=== PATIENT | male | born 1995 | race Asian ===

== ENCOUNTER 2019-03-15 15:34 | Emergency (ER) | payer SELFPAY ==
[2019-03-15] MEDS ORDERED: NS 0.9% 1000 ML** 1,000 ML IV ONE (15:44)
[2019-03-15] MEDS ORDERED: Ondansetron ODT TAB* 4 MG SL ONE (15:58)
--- NOTE | 2019-03-15 16:25 | ED ---
Substance Abuse/Use - HPI Summary HPI Summary: Patient is a 24-year-old male presenting to the ED from [facility]. Patient has obvious intoxication. Arrives by EMS. EMS states he was found on the held to be intoxicated and sent here. He is alert and oriented on arrival. He is able to state name, date, place and time. He is very stuporous and states "I'm all messed up, and I drank too much." Patient denies any drug use. He states he has otherwise healthy and denying any medications. Denies any allergies. He denies any trauma, hitting his head or LOC. He states he recalls the events of the morning, and just states he drank too much on this date. - History Of Current Complaint Chief Complaint: EDSubstanceAbuse Stated Complaint: ETOH PER EMS Time Seen by Provider: 03/15/19 15:43 Hx Obtained From: Patient Onset/Duration of Drug/ETOH Abuse: Hours Ingestion History: Type/Name Of Drug Overdose Characteristics: Oral Timing Of Abuse: Daily, Binge Use - Alcohol use without drug use Severity Initially: Moderate Severity Currently: Moderate Character: Stuporous Aggravating Factor(s): Nothing Alleviating Factor(s): Nothing Associated Signs And Symptoms: Nausea, Intentional Ingestion Related Hx: Drug/Alcohol Last Used @ - Just prior to arrival - Risk Factor(s) Completed Suicide Risk Factors: Male - Allergies/Home Medications Allergies/Adverse Reactions: Allergies Allergy/AdvReac Type Severity Reaction Status Date / Time No Known Allergies Allergy Verified 03/15/19 17:12 Home Medications: Home Medications Unobtainable 03/15/19 [History Confirmed 03/15/19] PMH/Surg Hx/FS Hx/Imm Hx Previously Healthy: Yes - Immunization History Hx Pertussis Vaccination: No Immunizations Up to Date: Yes Infectious Disease History: No Infectious Disease History: Denies: Traveled Outside the [place] in Last 30 Days - Social History Occupation: Unemployed, Student Lives: Dormitory/Roommates Alcohol Use: Weekly - binge use Hx Substance Use: No Substance Use Type: Reports: None - patient denies Hx Tobacco Use: No Smoking Status (MU): Never Smoked Tobacco Review of Systems Negative: Fever, Chills, Fatigue, Skin Diaphoresis Negative: Palpitations, Chest Pain Negative: Shortness Of Breath, Cough Positive: Nausea. Negative: Vomiting, Diarrhea Genitourinary: Negative Positive: no symptoms reported, see HPI Positive: Slurred Speech Psychological: Normal All Other Systems Reviewed And Are Negative: Yes Physical Exam Triage Information Reviewed: Yes Vital Signs On Initial Exam: Initial Vitals Temp Pulse Resp BP Pulse Ox 96.1 F 69 16 106/63 100 03/15/19 15:37 03/15/19 15:37 03/15/19 15:37 03/15/19 15:37 03/15/19 15:37 Vital Signs Reviewed: Yes Appearance: Positive: Well-Nourished, Ill-Appearing - Patient appears intoxicated Skin: Positive: Warm, Diaphoretic Head/Face: Positive: Normal Head/Face Inspection Eyes: Positive: EOMI, YASMIN, Conjunctiva Clear Neck: Positive: Supple, No Lymphadenopathy Respiratory/Lung Sounds: Positive: Clear to Auscultation, Breath Sounds Present Cardiovascular: Positive: RRR, Pulses are Symmetrical in both Upper and Lower Extremities Musculoskeletal: Positive: Normal, Strength/ROM Intact Neurological: Positive: Slurred Speech. Negative: Expressive Aphasia Psychiatric: Positive: Normal, Other - Patient is cooperative for exam AVPU Assessment: Verbal (Reponds To) - Nate Coma Scale Best Eye Response: 3 - To Speech Best Motor Response: 5 - Purposeful Movement Best Verbal Response: 5 - Oriented Coma Scale Total: 13 Diagnostics - Vital Signs Vital Signs Temp Pulse Resp BP Pulse Ox 03/15/19 15:37 96.1 F 69 16 106/63 100 - Laboratory Lab Statement: Any lab studies that have been ordered have been reviewed, and results considered in the medical decision making process. Course/Dx - Course Course Of Treatment: During the course of treatment, the patient is given 4 mg sublingual Zofran for nausea. He is endorsing nausea, without vomiting. He denies any drug use. Alcohol level obtained which is 204. He is kept in the ED nearly 3 hours. He is observed. He ambulated well, eating and drinking okay. Patient alert and oriented, able to answer questions appropriately. He' ll be discharged home at this time with alcohol intoxication. Safe ride back to [place]. - Diagnoses Provider Diagnoses: Alcohol intoxication Discharge - Sign-Out/Discharge Documenting (check all that apply): Patient Departure Patient Received Moderate/Deep Sedation with Procedure: No - Discharge Plan Condition: Stable Disposition: HOME Patient Education Materials: Alcohol Intoxication (ED) Referrals: No Primary Care Phys,NOPCP [Primary Care Provider] - Additional Instructions: Do not drink alcohol Drink plenty of fluids Rest today - Billing Disposition and Condition Condition: STABLE Disposition: Home
[2019-03-15 19:00] VITALS: BP 116/82
== END 2019-03-15 18:30 | disposition home or self-care (01) ==
LOC: ED 15:34 → EDBD 15:34 → ED 18:30
DX: F10.129 Alcohol abuse with intoxication, unspecified (principal); R47.81 Slurred speech; R11.0 Nausea
CPT/HCPCS: 36415; 80320; 99283; G0480

== ENCOUNTER 2019-03-28 18:34 | Emergency (ER) | payer SELFPAY ==
--- NOTE | 2019-03-28 18:53 | ED ---
Lower Extremity - HPI Summary HPI Summary: This patient is a 24 year old male presenting to [facility] with a chief complaint of right foot injury. He was swimming yesterday jumped down about 6 ft & landed on cement slab, injuring his right foot. He was seen and an xray was completed at [facility] with a splint & crutches provided. Today he lost balance & fell, landed on right knee & reinjured his right foot. He states he only has pain in the foot, the rest of his extremity feels fine. He rates his pain 8/10 in severity. - History of Current Complaint Stated Complaint: RT FOOT INJURY PER EMS Time Seen by Provider: 03/28/19 18:39 Hx Obtained From: Patient Onset of Pain: Minutes Onset/Duration: Minutes Severity Initially: Mild Severity Currently: Mild Pain Intensity: 8 Pain Scale Used: 0-10 Numeric - Allergies/Home Medications Allergies/Adverse Reactions: Allergies Allergy/AdvReac Type Severity Reaction Status Date / Time No Known Allergies Allergy Verified 03/28/19 18:51 Home Medications: Home Medications NK [No Home Medications Reported] 03/28/19 [History Confirmed 03/28/19] PMH/Surg Hx/FS Hx/Imm Hx Endocrine/Hematology History: Denies: Hx Diabetes Cardiovascular History: Denies: Hx Coronary Artery Disease - Family History Known Family History: Negative: Seizure Disorder - Social History Alcohol Use: Weekly - binge use Hx Substance Use: No Substance Use Type: Reports: None - patient denies Substance Use Comment - Amount & Last Used: unknown Hx Tobacco Use: No Smoking Status (MU): Never Smoked Tobacco Review of Systems Negative: Fever Positive: Other - RLE pain All Other Systems Reviewed And Are Negative: Yes Physical Exam - Summary Physical Exam Summary: Appearance: The patient is well-nourished in no acute distress and in no acute pain. Skin: The skin is warm and dry and skin color reflects adequate perfusion. HEENT: The head is normocephalic and atraumatic. The pupils are equal and reactive. The conjunctivae are clear and without drainage. Nares are patent and without drainage. Mouth reveals moist mucous membranes and the throat is without erythema and exudate. The external ears are intact. The ear canals are patent and without drainage. The tympanic membranes are intact. Neck: The neck is supple with full range of motion and non-tender. There are no carotid bruits. There is no neck vein distension. Respiratory: Chest is non-tender. Lungs are clear to auscultation and breath sounds are symmetrical and equal. Cardiovascular: Heart is regular rate and rhythm. There is no murmur or rub auscultated. There is no peripheral edema and pulses are symmetrical and equal. Abdomen: The abdomen is soft and non-tender. There are normal bowel sounds heard in all four quadrants and there is no organomegaly palpated. Musculoskeletal: There is no back tenderness noted. Extremities are non-tender with full range of motion. There is good capillary refill. There is no peripheral edema or calf tenderness elicited. Ecchymosis on the dorsal base of his great toe. Neurological: Patient is alert and oriented to person, place and time. The patient has symmetrical motor strength in all four extremities. Cranial nerves are grossly intact. Deep tendon reflexes are symmetrical and equal in all four extremities. Psychiatric: The patient has an appropriate affect and does not exhibit any anxiety or depression. Triage Information Reviewed: Yes Vital Signs On Initial Exam: Temp Pulse Resp BP Pulse Ox 97.9 F 67 16 128/62 96 03/28/19 18:36 03/28/19 18:36 03/28/19 18:36 03/28/19 18:36 03/28/19 18:36 Vital Signs Reviewed: Yes Diagnostics - Laboratory Lab Statement: Any lab studies that have been ordered have been reviewed, and results considered in the medical decision making process. - Radiology Foot XR Radiology Interpretation Completed By: ED Physician Summary of Radiographic Findings: No acute process. Pending official radiologist report. Lower Extremity Course/Dx - Course Course Of Treatment: Another x-ray was obtained and again negative. We're putting him back in his boot and crutches and recommending follow-up with orthopedics. - Diagnoses Provider Diagnoses: Right foot sprain Discharge - Sign-Out/Discharge Documenting (check all that apply): Patient Departure - Discharge Patient Received Moderate/Deep Sedation with Procedure: No - Discharge Plan Condition: Stable Disposition: HOME Patient Education Materials: Foot Sprain (ED) Referrals: No Primary Care Phys,NOPCP [Primary Care Provider] - Additional Instructions: Return to ED with any new or worsening symptoms. - Billing Disposition and Condition Condition: STABLE Disposition: Home - Attestation Statements Document Initiated by Scribe: Yes Documenting Scribe: Freddie Delacruz Provider For Whom Scribe is Documenting (Include Credential): Rui Price MD Scribe Attestation: I, Freddie Delacruz, scribed for Rui Price MD on 03/28/19 at 2123. Scribe Documentation Reviewed: Yes Provider Attestation: The documentation as recorded by the scribe, Freddie Delacruz accurately reflects the service I personally performed and the decisions made by me, Rui Price MD Status of Scribe Document: Viewed
[2019-03-28 19:41] VITALS: BP 121/65
== END 2019-03-28 19:40 | disposition home or self-care (01) ==
LOC: ED 18:34
DX: S93.601A Unspecified sprain of right foot, initial encounter (principal); W22.09XA Striking against other stationary object, initial encounter; Y93.39 Activity, other involving climbing, rappelling and jumping off
CPT/HCPCS: 99215; 99281

== ENCOUNTER 2019-03-30 10:28 | Day surgery (SDC) | payer OTHER ==
[~2019-03-30 10:28] MED LIST: Buffered Lidocaine 1% SYRIN* 1 ML/SYRINGE INTRADERM ONE; Lactated Ringers 1000 ML Bag* 1,000 ML IV SCH; Sodium Citrate/Citric Acid* 15 ML UDC PO ONE
[2019-03-30] MEDS ORDERED: Sodium Citrate/Citric Acid* 15 ML UDC ONE (10:43)
[2019-03-30] MEDS ORDERED: ceFAZolin 2 GM PREMIX in ORs 2 GM/50 ML BAG IVPB ONE (10:44)
[2019-03-30] MEDS ORDERED: Buffered Lidocaine 1% SYRIN* 1 ML/SYRINGE INTRADERM ONE (10:44)
[2019-03-30] MEDS ORDERED: Bupivacaine 0.5%* 50 ML VIAL ONE (11:30)
[2019-03-30] MEDS ORDERED: Bupivacaine 0.25% SDV PF* 10 ML VIAL INJ ONE (11:31)
[2019-03-30] MEDS ORDERED: Lidocaine 2% PF * 5 ML VIAL ONE (11:47)
[2019-03-30] MEDS ORDERED: Propofol* 10 MG/ML 20 ML BTL ONE (11:47)
[2019-03-30] MEDS ORDERED: fentaNYL* 50 MCG/ML 2 ML VIAL (100 MCG VIAL) ONE ×2 (11:47→13:49)
[2019-03-30] MEDS ORDERED: Ondansetron INJ* 2 MG/ML VIAL ONE (12:05)
[2019-03-30] MEDS ORDERED: Ketorolac INJ* 30 MG/ML 1 ML VIAL ONE (12:05)
[2019-03-30] MEDS ORDERED: Dexamethasone IV* 4 MG/ML 1 ML (4 MG) ONE (12:05)
[2019-03-30] MEDS ORDERED: Naloxone* 0.4 MG/ML 1 ML VIAL IV PRN (12:10)
[2019-03-30] MEDS ORDERED: DiMENhydriNATE IV* 50 MG/ML VIAL IV PUSH PRN (12:10)
[2019-03-30] MEDS ORDERED: Acetaminophen IV 1GM/100ML * 1,000 MG/100 ML VIAL IVPB ONE (13:15)
[2019-03-30] MEDS: fentaNYL* 50 MCG/ML 2 ML VIAL (100 MCG VIAL) IV PRN ×2 (13:49→13:54)
[2019-03-30] MEDS ORDERED: oxyCODONE TAB* 5 MG TAB ONE ×2 (14:13→15:16)
--- NOTE | 2019-03-30 14:18 | OP ---
Operative Report - Blank - Operative Report Date of Operation: 03/30/19 Note: PATIENT: Rustam Olivares DATE OF : 1995 DATE OF SURGERY: 03/30/2019 SURGEON: Alex Mcrae MD BASIC SCIENCES DEAN: FARRAH Gore, whos assistance was necessary for positioning, retraction, help with instrumentation, and closure. ANESTHESIOLOGIST: Dr. Faith PREOPERATIVE DIAGNOSIS: Left foot Lisfranc injury with Lisfranc and 2nd TMT joint dislocations, and 2nd metatarsal fracture, 3rd metatarsal fracture and lateral cuneiform fracture. POSTOPERATIVE DIAGNOSIS: Left foot Lisfranc injury with Lisfranc, 1st and 2nd TMT joint dislocations, and 2nd metatarsal fracture, 3rd metatarsal fracture and lateral cuneiform fracture. OPERATION: 1. Left foot open reduction and internal fixation of the 1st TMT joint. 2. Left foot open reduction and internal fixation of the Lisfranc and 2nd TMT joints. 3. Left foot open reduction and internal fixation of the 2nd metatarsal base fracture. 4. Left foot closed treatment of 3rd metatarsal and lateral cuneiform fractures. ANESTHESIA: General IMPLANTS: Arthrex CFS plate and screws, 4.0mm cannulated screw TOURNIQUET TIME: Less than 1 hour with a well-padded thigh tourniquet at 250 mmHg SPECIMENS: none ESTIMATED BLOOD LOSS: minimal COMPLICATIONS: none STATUS: Stable from the operating room to the recovery room and then home. INDICATIONS FOR PROCEDURE: Rustam sustained a right midfoot Lisfranc injury. Both operative and non operative treatment alternatives were reviewed. Further, the nature and risks of surgery were reviewed in careful detail, in the office as well as the pre- operative holding area. Our discussions regarding the risks of surgery included , but were not limited to, infection, wound problems, nerve injury, neuroma, RSD , persistent symptoms, blood clot, fracture, post-traumatic arthritis, hardware pain, need for further surgery, malunion, nonunion, persistent midfoot instability, failure of the surgery, and even the remote chance of catastrophic complication, including loss of limb. DESCRIPTION OF PROCEDURE: The patient was seen in the preoperative holding unit and informed written consent was obtained. The appropriate extremity was marked. The patient was then brought to the operating room and carefully positioned on the operating room table. Anesthesia was induced. All bony prominences were padded with great care. A chlorhexidine based pre-scrub was performed followed by a chloraprep prep and drape in standard sterile fashion. A surgical safety pause was then conducted in which we confirmed the appropriate patient, extremity, planned procedure, availability of equipment, indication and administration of prophylactic antibiotics, and DVT prophylaxis in the form of a compression boot on the non-surgical extremity. I performed an Esmarch exsanguination of the limb and inflated the tourniquet to 250 mmHg. I utilized a longitudinal incision centered at the base of the first and second metatarsals. I carefully dissected down through the soft tissues with great care taken to protect the superficial and deep neurovascular structures. The deep neurovascular bundle was visualized and carefully protected throughout the procedure. I then exposed the first and second tarsometatarsal joints, both of which were subluxated and grossly unstable. I also exposed the fracture at the base of the 2nd metatarsal and cleaned out the fracture hematoma. This resulted in a nice visualization of the joints. The joints were carefully inspected and given the lack of comminution of the articular surface, I elected not to proceed with a primary fusion, and instead perform an ORIF as we had discussed preoperatively. The first TMT joint was manually reduced and a 0.045 K-wire was used to hold the joint provisionally reduced. Fluoroscopy was used to confirm a good reduction. An Arthrex CFS plate was then chosen and contoured to fit the dorsum of the first TMT joint and medial column. This was held provisionally with olive wires and then five screws were placed into the first metatarsal and medial cuneiform. The provisional fixation was then removed and the joint was held well reduced. This was confirmed fluoroscopically. All of the screws had excellent purchase. I then turned my attention to the second metatarsal base fracture and second TMT joint. The fracture was reduced provisionally with a dental pick and then a large pointed reduction clamp was used to reduce the second TMT joint and Lisfranc joint complex. A separate incision was made medially and a guidewire for a 4.0 mm cannulated screw was driven from the medial cuneiform through the base of the second metatarsal under fluoroscopic guidance. This was measured and then overdrilled with a cannulated drill. A 4.0 mm cannulated screw was then placed over the guidewire. The pointed reduction clamp was then removed and the joints and fracture were held well reduced by the hardware. Fluoroscopy was again used to confirm this. There did not appear to be any hardware in any of the joints. I examined the intercuneiform joints, and did not appreciate any instability. Fluoroscopy was then used to image the 3rd metatarsal and medial cuneiform fractures, which appeared well reduced and without any correlated joint instability. Therefore, I decided to treat the 3rd metatarsal and medial cuneiform fractures in a closed manner. Final fluoroscopic images were obtained. At this point, we irrigated copiously and then closed in layers meticulously utilizing 3-0 Monocryl and 3-0 nylon for the skin. A sterile dressing was then applied followed by a splint with the ankle in a neutral position. The patient was then awakened from anesthesia and transferred to the recovery room in stable condition. There were no complications. All needle and sponge counts were correct at the end of the case. ATTESTATION: I attest I was present and scrubbed and performed the critical portions of the procedure myself. POSTOPERATIVE PLAN: Follow up will be in 2 weeks for likely suture removal and postop x-rays. The postoperative plan is to be [id number] for 2 months , then weight-bearing as tolerated in a boot between months 2-3, and then into regular shoes at 3 months postop.
[2019-03-30 16:04] VITALS: BP 136/80
== END 2019-03-30 16:09 | disposition home or self-care (01) ==
LOC: OR 10:28
PROVIDERS: ATTEND Orthopaedic Surgery
DX: S92.321A Displaced fracture of second metatarsal bone, right foot, initial encounter for closed fracture (principal); S92.332A Displaced fracture of third metatarsal bone, left foot, initial encounter for closed fracture; S93.325A Dislocation of tarsometatarsal joint of left foot, initial encounter; W17.89XA Other fall from one level to another, initial encounter; Y93.01 Activity, walking, marching and hiking; Y92.838 Other recreation area as the place of occurrence of the external cause
CPT/HCPCS: 76000; A9270-GY; C1713; C1776; J0690; J1100; J1885; J2405; J2704; J3010; J3490

== ENCOUNTER → 2019-08-03 05:40 | Day surgery (SDC) | payer OTHER ==
[~2019-08-03 05:40] MED LIST changes: +Acetaminophen IV 1GM/100ML * 1,000 MG/100 ML VIAL IVPB ONE; +Acetaminophen IV 1GM/100ML * 100 ML ONE; +Bupivacaine 0.5%* 50 ML MDV VIAL ONE; +Ketorolac INJ* 30 MG/ML 1 ML VIAL ONE; +Lidocaine 2% PF * 5 ML VIAL ONE; +Naloxone* 0.4 MG/ML 1 ML VIAL IV PRN; +Ondansetron INJ* 2 MG/ML VIAL IV PRN; +Propofol* 10 MG/ML 20 ML BTL ONE; +Sodium Citrate/Citric Acid* 15 ML UDC ONE; +ceFAZolin 2 GM in NS PREMIX(*) 2 GM/100 ML BAG IVPB ONE; +fentaNYL* 50 MCG/ML 2 ML VIAL (100 MCG VIAL) IV PRN; +fentaNYL* 50 MCG/ML 2 ML VIAL (100 MCG VIAL) ONE
--- NOTE | 2019-08-03 08:20 | OP ---
Operative Report - Blank - Operative Report Date of Operation: 08/03/19 Note: PATIENT: Rustam Olivares DATE OF : 1995 DATE OF SURGERY: 08/03/2019 SURGEON: Alex Mcrae MD CARE PROFESSIONALS: FARRAH Gore, whos assistance was necessary for positioning, retraction, help with instrumentation, and closure. ANESTHESIOLOGIST: Dr. Faith PREOPERATIVE DIAGNOSIS: Right foot painful retained hardware POSTOPERATIVE DIAGNOSIS: Right foot painful retained hardware OPERATION: 1. Right foot, removal of implants, deep. 2. Stress fluoroscopy performed by surgeon under anesthesia. ANESTHESIA: General IMPLANTS: None implanted TOURNIQUET TIME: Less than 30 minutes with an ankle Esmarch tourniquet SPECIMENS: none ESTIMATED BLOOD LOSS: minimal COMPLICATIONS: none STATUS: Stable from the operating room to the recovery room and then home. INDICATIONS FOR PROCEDURE: Rustam sustained a lisfranc midfoot injury and underwent ORIF. Both operative and non operative treatment alternatives were reviewed. Further, the nature and risks of surgery were reviewed in careful detail, in the office as well as the pre-operative holding area. Our discussions regarding the risks of surgery included, but were not limited to, infection, wound problems, nerve injury, neuroma, RSD, persistent symptoms, blood clot, need for further surgery, post- traumatic arthritis, failure of the surgery, and even the remote chance of catastrophic complication, including loss of limb. DESCRIPTION OF PROCEDURE: The patient was seen in the preoperative holding unit and informed written consent was obtained. The appropriate extremity was marked. The patient was then brought to the operating room and carefully positioned on the operating room table. Anesthesia was induced. All bony prominences were padded with great care. A chlorhexidine based pre-scrub was performed followed by a chloraprep prep and drape in standard sterile fashion. A surgical safety pause was then conducted in which we confirmed the appropriate patient, extremity, planned procedure, availability of equipment, indication and administration of prophylactic antibiotics, and DVT prophylaxis in the form of a compression boot on the non-surgical extremity. We began by placing an ankle Esmarch tourniquet. I utilized the prior dorsal foot incision to access the medial column hardware. I used blunt dissection to expose the hardware and took great care not to disturb the neurovascular bundle. The hardware was exposed and a screw school bus driver/teacher assistant was used to remove the screws. A freer was used to loosen the plate which was then removed. A rongeur was used to smooth out the bone. I then turned my attention to the percutaneous screw. I utilized a small K wire to cannulate the cannulated screw. I dissected down to expose the hardware. We removed the screw utilizing a screwdriver without difficulty. I then performed an external rotation and abduction stress fluoroscopic examination. No instability was appreciated at the Lisfranc articulation. A fluoroscopic image was obtained demonstrating removal of hardware. At this point, we irrigated copiously and then closed in layers meticulously utilizing 3-0 Monocryl and 3-0 nylon for the skin. A sterile dressing was then applied. The patient was then awakened from anesthesia and transferred to the recovery room in stable condition. There were no complications. All needle and sponge counts were correct at the end of the case. ATTESTATION: I attest I was present and scrubbed and performed the critical portions of the procedure myself. POSTOPERATIVE PLAN: The plan is to remove the sutures in 2 weeks.
[2019-08-03 10:07] VITALS: BP 124/87
== END | disposition home or self-care (01) ==
LOC: OR 05:40
PROVIDERS: ATTEND Orthopaedic Surgery
DX: S92.321D Displaced fracture of second metatarsal bone, right foot, subsequent encounter for fracture with routine healing (principal); S92.224A Nondisplaced fracture of lateral cuneiform of right foot, initial encounter for closed fracture; S92.334A Nondisplaced fracture of third metatarsal bone, right foot, initial encounter for closed fracture; S93.324D Dislocation of tarsometatarsal joint of right foot, subsequent encounter; X58.XXXD Exposure to other specified factors, subsequent encounter; X58.XXXA Exposure to other specified factors, initial encounter
CPT/HCPCS: 76000; 88300; A9270-GY; J0690; J1885; J2704; J3010; J3490